=== PATIENT | male | born 1950 | race Caucasian/White ===

== ENCOUNTER 2019-06-03 01:38 | Emergency (ER) | payer MEDICARE ==
[~2019-06-03] VITALS: Ht 172.7 cm; Wt 86.2 kg
--- NOTE | ~2019-06-03 | EKG ---
[place], [place] ELECTROCARDIOGRAM REPORT NAME: URSULA MADRID UNIT #: [id number] ROOM: DOCTOR: EPIPHANY DRAFT REPORT BIRTHDATE: [birth year] [facility] Test Date: 2019-06-03 Test Time: 02:32:07 Pat Name: URSULA MADRID Department: Room: Gender: M [employer]: : 1950 Requested By: RADHA ANDRE Order Number: [id number] Reading MD: Joaquín Valentine MD Measurements Intervals [place] Rate: 76 P: 47 ID: [id number] QRS: 56 QRSD: 80 T: 22 QT: 370 QTc: 417 Interpretive Statements Sinus rhythm Minimal ST elevation, anterior leads Electronically Signed On 06-05-2019 7:22:21 PDT by Joaquín Valentine MD CM:EKGRPT:ELECTROCARDIOGRAM REPORT [id number] RADHA ANDRE MD EPIPHANY DRAFT REPORT RADHA ANDRE MD
[2019-06-03 02:25] LABS: BASO % 0.5 % (0.0-1.0); EOS # 0.2 10*3/uL (0.0-0.4); EOS % 2.7 % (1.0-4.0); HEMATOCRIT 41.9 % (42.0-52.0); HEMOGLOBIN 13.6 g/dl (14.0-18.0); LYMPH # 2.1 10*3/uL (1.3-4.4); LYMPH % 23.7 % (27.0-41.0); MEAN CELL VOLUME 96.3 fl (80.0-94.0); MEAN CORPUSCULAR HGB 31.3 pg (27.0-31.0); MEAN CORPUSCULAR HGB CONC 32.5 g/dl (33.0-37.0); MEAN PLATELET VOLUME 10.6 fl (9.6-12.3); MONO # 0.9 10*3/uL (0.1-1.0); NEUT # 5.4 10*3/uL (2.3-7.9); NEUT % 62.2 % (47.0-73.0); PLATELET COUNT AUTOMATED 193 10*3/uL (130-400); RED BLOOD COUNT 4.35 10*6/uL (4.50-5.90); RED CELL DISTRI WIDTH 13.4 % (0-14.5); WHITE BLOOD COUNT 8.6 10*3/uL (4.8-10.8)
[2019-06-03 02:48] LABS: TROPONIN I < 0.015 ng/ml (<0.045)
[2019-06-03 02:56] LABS: BUN 8 mg/dl (7-24)
[2019-06-03 02:57] LABS: ALBUMIN 3.4 gm/dl (3.1-4.5); ALKALINE PHOSPHATASE 87 U/L (45-117); CHLORIDE 104 mmol/L (98-107); CREATININE 1.28 mg/dL (0.70-1.30); LIPASE 196 U/L (73-393); POTASSIUM 3.7 mmol/L (3.5-5.1); SGOT/AST 21 IU/L (3-35); SGPT/ALT 36 U/L (12-78); SODIUM 137 mmol/L (136-145); TOTAL PROTEIN 7.5 gm/dL (6.4-8.2)
== END 2019-06-03 03:12 | disposition home or self-care (01) ==
LOC: ED 01:38
PROVIDERS: Emergency Medicine Emergency Medical Services
DX: E11.649 Type 2 diabetes mellitus with hypoglycemia without coma (principal); R42 Dizziness and giddiness

== ENCOUNTER 2021-12-16 20:48 | Emergency (ER) | payer MEDICARE ==
[~2021-12-16] VITALS: Ht 162.5 cm; Wt 83.5 kg
[2021-12-16] MEDS ORDERED: PREGABALIN300 MG PO (23:00)
[2021-12-16] MEDS ORDERED: LISINOPRIL40 MG PO (23:00)
[2021-12-16] MEDS ORDERED: NIACIN500 M2 PO (23:00)
[2021-12-16] MEDS ORDERED: LEVOTHYROXINE100 MC1 PO (23:00)
[2021-12-16] MEDS ORDERED: RYBELSUS7 MG PO (23:00)
[2021-12-16] MEDS ORDERED: METOPROLOL SUCC50 M1 PO (23:00)
[2021-12-16] MEDS ORDERED: ZETIA10 MG PO (23:01)
[2021-12-16] MEDS ORDERED: AMLODIPINE BESYL5 MG PO (23:01)
[2021-12-16] MEDS ORDERED: LANSOPRAZOLE30 MG PO (23:03)
[2021-12-16 23:41] LABS: BASO % 0.3 % (0.0-1.0); EOS # 0.1 10*3/uL (0.0-0.4); HEMATOCRIT 41.4 % (42.0-52.0); LYMPH # 1.7 10*3/uL (1.3-4.4); LYMPH % 16.6 % (27.0-41.0); MEAN CELL VOLUME 91.6 fl (80.0-94.0); MEAN CORPUSCULAR HGB 31.2 pg (27.0-31.0); MEAN CORPUSCULAR HGB CONC 34.1 g/dl (33.0-37.0); MEAN PLATELET VOLUME 10.5 fl (9.6-12.3); MONO # 0.6 10*3/uL (0.1-1.0); MONO % 6.2 % (3.0-9.0); NEUT # 7.5 10*3/uL (2.3-7.9); NEUT % 75.5 % (47.0-73.0); PLATELET COUNT AUTOMATED 181 10*3/uL (130-400); RED BLOOD COUNT 4.52 10*6/uL (4.50-5.90); RED CELL DISTRI WIDTH 12.8 % (0-14.5)
[2021-12-16 23:54] LABS: INTERNATIONAL NORM RATIO 0.9 (2.0-3.5)
[2021-12-16 23:56] LABS: ALKALINE PHOSPHATASE 94 U/L (45-117); BUN 14 mg/dl (7-24); CHLORIDE 104 mmol/L (98-107); POTASSIUM 4.2 mmol/L (3.5-5.1); SGOT/AST 22 IU/L (3-35); SGPT/ALT 37 U/L (12-78); SODIUM 135 mmol/L (136-145); TOTAL PROTEIN 7.3 gm/dL (6.4-8.2)
== END 2021-12-17 00:40 | disposition home or self-care (01) ==
LOC: ED 20:48
PROVIDERS: Emergency Medicine
DX: R55 Syncope and collapse (principal); R42 Dizziness and giddiness; E11.9 Type 2 diabetes mellitus without complications; I10 Essential (primary) hypertension; Z79.899 Other long term (current) drug therapy